=== PATIENT | female | born 1975 | race Caucasian/White ===

== ENCOUNTER 2018-07-28 18:08 | Emergency (ER) | payer MEDICAID ==
[~2018-07-28] VITALS: Ht 154.9 cm; Wt 94.0 kg
[~2018-07-28 18:08] MED LIST: HYDR-3498 PO; IBUP-1542 PO; OMEP20CA9 PO
[2018-07-28 18:12] VITALS: Ht 154.9 cm; Wt 94.0 kg
[2018-07-28] MEDS ORDERED: LORAZEPAM 0.5 MG TAB PO ONE (19:30)
[2018-07-28] MEDS ORDERED: ACETAMINOPHEN 325 MG TAB PO ONE (19:30)
[2018-07-28] MEDS ORDERED: IBUP-1542 PO (19:56)
[2018-07-28] MEDS ORDERED: FIORICET PO (19:56)
--- NOTE | 2018-07-28 19:59 | ERD ---
ER Documentation Chief Complaint Chief Complaint ANXIOUSNESS WITH REESE/SOB AT TIMES, NIH 0 HPI 43-year-old female presents with a global headache for the last week. She has sensation of intermittent shortness of breath and anxiousness as well. She denies any history of anxiety or inciting events. She denies any recent illnesses, fevers, vomiting, abdominal pain. ROS All systems reviewed and are negative except as per history of present illness. Medications Home Meds Active Scripts Acetamin/Butalbital/Caffeine* (Fioricet*) [id number] Tab, 1 TAB PO Q6H PRN for PAIN, #12 TAB Prov:LUCERO GARAY MD 07/28/18 Ibuprofen* (Motrin*) 600 Mg Tab, 600 MG PO Q6, #20 TAB Prov:LUCERO GARAY MD 07/28/18 Omeprazole* (Prilosec*) 20 Mg Capsule.dr, 20 MG PO BID, #30 CAP Prov:ASHLEIGH GARNER MD 09/01/15 Ibuprofen* (Motrin*) 600 Mg Tab, 600 MG PO Q6, #20 TAB Prov:ASHLEIGH GARNER MD 09/01/15 Hydrocodone Bit-Acetaminophen* ([place]*) 5-325 Mg Tab, 1 TAB PO Q6 PRN for PAIN, #20 TAB Prov:ASHLEIGH GARNER MD 09/01/15 Allergies Allergies: Coded Allergies: No Known Drug Allergy (Verified Allergy, Unknown, 11/04/11) PMhx/Soc Medical and Surgical Hx: pt denies Medical Hx History of Surgery: Yes (, L knee) Hx Alcohol Use: No Hx Substance Use: No Hx Tobacco Use: No Smoking Status: Never smoker FmHx Family History: No diabetes, No coronary disease, No other Physical Exam Vitals Vital Signs Date Temp Pulse Resp B/P (MAP) Pulse Ox O2 O2 Flow FiO2 Time Delivery Rate 07/28/18 98.8 83 18 182/86 100 18:12 (118) Physical Exam Const: No acute distress Head: Atraumatic Eyes: Normal Conjunctiva and eyes Alvin and extraocular movements intact. ENT: Normal External Ears, Nose and Mouth. TMs and oropharynx normal. Neck: Full range of motion. No meningismus. Resp: Clear to auscultation bilaterally Cardio: Regular rate and rhythm, no murmurs Abd: Soft, non tender, non distended. Normal bowel sounds Skin: No petechiae or rashes Back: No midline or flank tenderness Ext: No cyanosis, or edema Neur: Awake and alert. Cranial nerves II through XII grossly intact. No pronator drift. No cerebellar signs. Psych: Normal Mood and Affect Results 24 hrs Laboratory Tests Test 07/28/18 19:24 07/28/18 19:26 Bedside Urine pH (LAB) 6.5 Bedside Urine Protein (LAB) Negative Bedside Urine Glucose (UA) Negative Bedside Urine Ketones (LAB) Negative Bedside Urine Blood 2+ Bedside Urine Nitrite (LAB) Negative Bedside Urine Leukocyte Esterase (L Negative POC Beta HCG, Qualitative NEGATIVE Current Medications Medications Dose Sig/Jocelin Start Time Status Last (Trade) Ordered Route PRN Stop Time Admin Dose Reason Admin 650 mg ONCE ONCE 07/28/18 DC 07/28/18 Acetaminophen PO 19:30 19:20 (Tylenol 07/28/18 19:31 Tab) Lorazepam 0.5 mg ONCE ONCE 07/28/18 DC 07/28/18 (Ativan) PO 19:30 19:20 07/28/18 19:31 Procedures/MDM EKG: Rate/Rhythm: Normal Sinus Rhythm. Rate equals 62. QRS, ST, T-waves: No changes consistent w/ acute ischemia Impression: No evidence of ischemia or arrhythmia. Impression-normal EKG Urine shows no significant acute abnormalities. Patient given Tylenol and Ativan 0.5 mg for findings consistent with anxiety and tension headache. Given duration of symptoms CT brain was performed which was read as normal by the radiologist. Patient presents with multiple complaints including sensation of shortness of breath with normal EKG and a normal clinical exam. She has 1 week complaint of global headache without acute findings to suggest meningitis, bleeding, neurologic deficit, concerning symptoms or findings. She may have a tension headache. She will treated empirically with short course of Fioricet, ibuprofen, primary care follow-up and return precautions. The patient was stable with no new complaints during the ER course. Clinically, there is no current evidence to suggest meningitis, sepsis, acute abdomen, pneumonia, stroke, acute coronary syndrome, pulmonary embolism, aortic dissection or any other emergent condition appearing to require further evaluation or hospitalization. Patient counseled regarding my diagnostic impression and care plan. Prior to discharge all questions answered. Pt agrees with treatment plan and understands strict return precautions. Pt is instructed to follow up with primary care provider within 24-48 hours. Precautionary instructions provided i ncluding instructions to return to the ER if not improving or for any worsening or changing symptoms or concerns. Departure Diagnosis: Primary Impression: Headache Headache type: unspecified Headache chronicity pattern: unspecified pattern Intractability: not intractable Qualified Codes: R51 - Headache Condition: Stable Patient Instructions: Self-Care for Headaches Additional Instructions: Examines normal hoy. Cheque otro vez con fisher doctor primario en el proximo degroot or regresa para mas o nueva simptomas. LUCERO GARAY MD Jul 28, 2018 19:59
[2018-07-28 20:50] VITALS: BP 129/63; PULSE 71; RESP 18
== END 2018-07-28 20:53 | disposition home or self-care (01) ==
LOC: FTE 18:08
DX: R51 Headache (principal)
CPT/HCPCS: 70450; 81003; 81025; 93005; Z7502; Z7610